=== PATIENT | female | born 1935 | race Caucasian/White ===

== ENCOUNTER 2017-12-04 21:22 | Emergency (ER) | payer MEDICARE ==
[~2017-12-04] VITALS: Ht 160 cm; Wt 100.0 kg
[~2017-12-04 21:22] MED LIST: ACYC-114 PO; ASPI-621 PO; CLIN150C14 PO; CRAN450T3 PO; DOCU-131 PO; FURO-92 PO; HYDR-3237 PO; LEVO75TA5 PO; LOSA1TAB22 PO; LOSA50TA2 PO; METO25TA35 PO; OXYC5TAB3 PO; POTA20TA14 PO; ROSU20TA PO; SIMV20TA3 PO; SULF-169 PO; WARF2.5T73 PO
[2017-12-04] MEDS ORDERED: LIDOCAINE-MPF 2%, 2ML ONE (21:34)
[2017-12-04] MEDS ORDERED: PLEASE ENTER HEIGHT AND WEIGHT MC SCH (22:00)
[2017-12-04] MEDS ORDERED: LIDOCAINE-MPF 1%, 5ML INFIL ONE (22:00)
[2017-12-04] MEDS ORDERED: DIPH,PERTUSS(ACELL),TET VAC/PF 0.5 ML IM-VACC ONE ×2 (22:00→23:25)
[2017-12-04 23:33] VITALS: BP 136/74
== END 2017-12-04 23:35 | disposition home or self-care (01) ==
LOC: ED 23:30
DX: S06.0X0A Concussion without loss of consciousness, initial encounter (principal); S01.01XA Laceration without foreign body of scalp, initial encounter; I10 Essential (primary) hypertension; E03.9 Hypothyroidism, unspecified; W10.9XXA Fall (on) (from) unspecified stairs and steps, initial encounter; Y93.89 Activity, other specified; Y99.8 Other external cause status; Y92.009 Unspecified place in unspecified non-institutional (private) residence as the place of occurrence of the external cause
CPT/HCPCS: 12031; 70450; 90471; 90715